=== PATIENT | male | born 1985 | race Hispanic/Latino ===

== ENCOUNTER 2020-07-21 05:35 | Emergency (ER) | payer BC ==
[2020-07-21 06:24] LABS: Basophils % (Auto) 0.1 % (0.0-1.8); Eosinophils # (Auto) 0.1 K/mm3 (0.0-0.4); Eosinophils % (Auto) 0.3 % (0.0-4.3); Hematocrit 45.1 % (35.5-45.6); Hemoglobin 15.2 gm/dl (11.8-15.2); Lymphocytes # (Auto) 2.6 K/mm3 (1.2-5.4); Lymphocytes % (Auto) 13.4 % (13.4-35.0); Mean Corpuscular HGB Conc 34 % (32-34); Mean Corpuscular Volume 90 fl (84-94); Platelet Count 254 K/mm3 (140-440); Red Blood Count 5.03 M/mm3 (3.65-5.03); Red Cell Distribution Width 13.5 % (13.2-15.2)
[2020-07-21 06:42] LABS: Alanine Aminotransferase 18 units/L (7-56); Albumin 4.9 g/dL (3.9-5); BUN/Creatinine Ratio 14; Blood Urea Nitrogen 15 mg/dL (9-20); Calcium 9.6 mg/dL (8.4-10.2); Hemolysis Index 5
[2020-07-21] MEDS ORDERED: ONDANSETRON 4 MG/2 ML INJ IV ONE (07:20)
[2020-07-21] MEDS ORDERED: SODIUM CHLORIDE 0.9% 500 ML 500 ML IV ONE (07:20)
[2020-07-21] MEDS ORDERED: MORPHINE 4 MG/1 ML INJ IV ONE (07:20)
--- NOTE | 2020-07-21 07:33 | Emergency Department Report ---
ED Abdominal Pain HPI - General Chief Complaint: Abdominal Pain Stated Complaint: RT SIDE FLANK/EMESIS Time Seen by Provider: 07/21/20 07:10 Source: patient Mode of arrival: Ambulatory Limitations: No Limitations - History of Present Illness Initial Comments: Patient is a 35-year-old male presents emergency room with complaints of right lower quadrant abdominal pain that began this morning. He states that it feels like intermittent sharp stabbing pain that lasts for approximately 10 to 15 minutes. He has associated nausea and vomiting. He denies any diarrhea, fever, dysuria, hematochezia, hematemesis, melena. He denies any abdominal surgical h istory. He denies any sick contacts or recent travel. No past medical history. No allergies medications. - Related Data Previous Rx's Medication Instructions Recorded Last Taken Type Ondansetron [Zofran Odt] 4 mg PO Q8HR PRN #8 tab.rapdis 07/21/20 Unknown Rx Tamsulosin [Flomax] 0.4 mg PO QDAY #5 cap 07/21/20 Unknown Rx traMADoL [Ultram 50 MG tab] 50 mg PO Q6HR PRN #10 tablet 07/21/20 Unknown Rx Allergies Allergy/AdvReac Type Severity Reaction Status Date / Time No Known Allergies Allergy Unverified 07/21/20 05:45 ED Review of Systems ROS: Stated complaint: RT SIDE FLANK/EMESIS Other details as noted in HPI Comment: All other systems reviewed and negative ED Past Medical Hx - Past Medical History Previous Medical History?: No - Surgical History Past Surgical History?: No - Social History Smoking Status: Never Smoker Substance Use Type: None - Medications Home Medications: Home Medications Medication Instructions Recorded Confirmed Last Taken Type Ondansetron [Zofran Odt] 4 mg PO Q8HR PRN #8 tab.rapdis 07/21/20 Unknown Rx Tamsulosin [Flomax] 0.4 mg PO QDAY #5 cap 07/21/20 Unknown Rx traMADoL [Ultram 50 MG tab] 50 mg PO Q6HR PRN #10 tablet 07/21/20 Unknown Rx ED Physical Exam - General Limitations: No Limitations General appearance: alert, in no apparent distress - Head Head exam: Present: atraumatic, normocephalic - Eye Eye exam: Present: normal appearance - ENT ENT exam: Present: mucous membranes moist - Respiratory Respiratory exam: Present: normal lung sounds bilaterally. Absent: respiratory distress, wheezes, rales, rhonchi, stridor, chest wall tenderness, accessory muscle use, decreased breath sounds, prolonged expiratory - Cardiovascular Cardiovascular Exam: Present: regular rate, normal rhythm, normal heart sounds. Absent: systolic murmur, diastolic murmur, rubs, gallop - GI/Abdominal GI/Abdominal exam: Present: soft, tenderness (RLQ), normal bowel sounds. Absent: distended, guarding, rebound, rigid - Neurological Exam Neurological exam: Present: alert, oriented X3 - Psychiatric Psychiatric exam: Present: normal affect, normal mood - Skin Skin exam: Present: warm, dry, intact ED Course Vital Signs 07/21/20 07/21/20 05:38 09:51 Temperature 97.4 F L Pulse Rate 68 71 Respiratory 17 16 Rate Blood Pressure 174/111 Blood Pressure 122/76 [Right] O2 Sat by Pulse 97 98 Oximetry ED Medical Decision Making - Lab Data Result diagrams: 07/21/20 05:48 07/21/20 05:48 Lab Results 07/21/20 07/21/20 07/21/20 Range/Units 05:48 05:48 09:04 WBC 19.6 H (4.5-11.0) K/mm3 RBC 5.03 (3.65-5.03) M/mm3 Hgb 15.2 (11.8-15.2) gm/dl Hct 45.1 (35.5-45.6) % MCV 90 (84-94) fl MCH 30 (28-32) pg MCHC 34 (32-34) % RDW 13.5 (13.2-15.2) % Plt Count 254 (140-440) K/mm3 Lymph % (Auto) 13.4 (13.4-35.0) % [place] % (Auto) 5.0 (0.0-7.3) % Eos % (Auto) 0.3 (0.0-4.3) % Baso % (Auto) 0.1 (0.0-1.8) % Lymph # (Auto) 2.6 (1.2-5.4) K/mm3 [place] # (Auto) 1.0 H (0.0-0.8) K/mm3 Eos # (Auto) 0.1 (0.0-0.4) K/mm3 Baso # (Auto) 0.0 (0.0-0.1) K/mm3 Seg Neutrophils % 81.2 H (40.0-70.0) % Seg Neutrophils # 15.9 H (1.8-7.7) K/mm3 Sodium 146 H (137-145) mmol/L Potassium 4.5 (3.6-5.0) mmol/L Chloride 106.6 (98-107) mmol/L Carbon Dioxide 23 (22-30) mmol/L Anion Gap 21 mmol/L BUN 15 (9-20) mg/dL Creatinine 1.1 (0.8-1.3) mg/dL Estimated GFR > 60 ml/min BUN/Creatinine Ratio 14 % Glucose 128 H (75-100) mg/dL Calcium 9.6 (8.4-10.2) mg/dL Total Bilirubin 0.20 (0.1-1.2) mg/dL AST 17 (5-40) units/L ALT 18 (7-56) units/L Alkaline Phosphatase 64 (35-129) units/L Total Protein 7.3 (6.3-8.2) g/dL Albumin 4.9 (3.9-5) g/dL Albumin/Globulin Ratio 2.0 % Lipase 37 (13-60) units/L Urine Color Straw (Yellow) Urine Turbidity Clear (Clear) Urine pH 7.0 (5.0-7.0) Ur Specific [place] 1.060 H (1.003-1.030) Urine Protein <15 mg/dl (Negative) mg/dL Urine Glucose (UA) Neg (Negative) mg/dL Urine Ketones Tr (Negative) mg/dL Urine Blood Lg (Negative) Urine Nitrite Neg (Negative) Urine Bilirubin Neg (Negative) Urine Urobilinogen < 2.0 (<2.0) mg/dL Ur Leukocyte Esterase Neg (Negative) Urine WBC (Auto) 1.0 (0.0-6.0) /HPF Urine RBC (Auto) 145.0 (0.0-6.0) /HPF Urine Mucus Few /HPF Vital Signs 07/21/20 07/21/20 05:38 09:51 Temperature 97.4 F L Pulse Rate 68 71 Respiratory 17 16 Rate Blood Pressure 174/111 Blood Pressure 122/76 [Right] O2 Sat by Pulse 97 98 Oximetry - Radiology Data Radiology results: report reviewed CT ABDOMEN AND PELVIS WITH CONTRAST INDICATION / CLINICAL INFORMATION: Right lower quadrant abdominal pain since this morning, nausea and vomiting, elevated white blood cell count. TECHNIQUE: Axial CT images were obtained through the abdomen and pelvis after IV contrast. Sagittal and coronal reformatted images. All CT scans at this location are performed using CT dose reduction for ALARA by means of automated exposure control. COMPARISON: None available. FINDINGS: LOWER CHEST: No significant abnormality. LIVER: No significant abnormality. GALLBLADDER: No significant abnormality. BILE DUCTS: No significant abnormality. PANCREAS: No significant abnormality. SPLEEN: No significant abnormality. ADRENALS: No significant abnormality. RIGHT KIDNEY and URETER: A 3 mm distal right ureteral stone is identified. There is mild right hydronephrosis and periureteral stranding. The right kidney is unremarkable. LEFT KIDNEY and URETER: No significant abnormality. STOMACH and SMALL BOWEL: No significant abnormality. COLON: No significant abnormality. APPENDIX: No significant abnormality. PERITONEUM: No free fluid. No free air. No fluid collection. LYMPH NODES: No significant adenopathy. AORTA and ARTERIES: No significant abnormality. IVC and VEINS: No significant abnormality. URINARY BLADDER: No significant abnormality. REPRODUCTIVE ORGANS: No significant abnormality. ADDITIONAL FINDINGS: None. SKELETAL SYSTEM: No significant abnormality. IMPRESSION: 3 mm distal right ureteral stone, mildly obstructing. No acute inflammatory process is appreciated. Normal appendix. Signer Name: Atilio Mireles Jr, MD Signed: 07/21/2020 8:06 AM Workstation Name: [id number] Transcribed By: TTR Dictated By: ATILIO MIRELES JR, MD Electronically Authenticated By: ATILIO MIRELES JR, MD Signed Date/Time: 07/21/20805 DD/ 1 TD/TT: - Medical Decision Making Patient is a 35-year-old male presents emergency room with complaints of right lower quadrant abdominal pain that began this morning. He states that it feels like intermittent sharp stabbing pain that lasts for approximately 10 to 15 minutes. He has associated nausea and vomiting. He denies any diarrhea, fever, dysuria, hematochezia, hematemesis, melena. He denies any abdominal surgical history. He denies any sick contacts or recent travel. No past medical history. No allergies medications. Initial vitals with elevated blood pressure which improved upon repeat to normal. On exam patient has right lower quadrant abdominal tenderness palpation, no guarding, no rebound, no rigidity, no peritoneal signs, normal bowel sounds. Lab significant for white blood cell count of 19.6. CT abdomen pelvis with IV contrast 3 mm distal right ureteral stone, mildly obstructing. No acute inflammatory process is appreciated. Normal appendix. UA with red blood cells, otherwise no signs of infection. Do not suspect infected nephrolithiasis as patient has no white blood cells in the urine, no fever, no tachycardia. It appears patient should likely passed stone as it already is in the distal ureter. His renal function is normal. Patient given medications and symptoms improved and he was feeling much better ready to go home. Patient was able to tolerate p.o. intake while in the emergency department. He had no further episodes of vomiting. Discussed all results with patient and answered questions. Patient given prescription for tramadol, Zofran, tamsulosin. advised pt Please take medication as prescribed. Increase your water intake. Follow-up with your primary care doctor. Follow-up with urologist. Return to emergency room immediately for any new or worsening symptoms. - Differential Diagnosis Appendicitis, colitis, nephrolithiasis, pyelonephritis, perforation, mass Critical care attestation.: If time is entered above; I have spent that time in minutes in the direct care of this critically ill patient, excluding procedure time. ED Disposition Clinical Impression: Nephrolithiasis Abdominal pain Qualifiers: Abdominal location: right lower quadrant Qualified Code(s): R10.31 - Right lower quadrant pain Nausea & vomiting Qualifiers: Vomiting type: unspecified Vomiting Intractability: non-intractable Qualified Code(s): R11.2 - Nausea with vomiting, unspecified Disposition: DC-01 TO HOME OR SELFCARE Is pt being admited?: No Does the pt Need Aspirin: No Condition: Stable Instructions: Kidney Stones (ED) Additional Instructions: Please take medication as prescribed. Increase your water intake. Follow-up with your primary care doctor. Follow-up with urologist. Return to emergency room immediately for any new or worsening symptoms. Prescriptions: Tamsulosin [Flomax] 0.4 mg PO QDAY #5 cap traMADoL [Ultram 50 MG tab] 50 mg PO Q6HR PRN #10 tablet PRN Reason: Pain , Severe (7-10) Ondansetron [Zofran Odt] 4 mg PO Q8HR PRN #8 tab.rapdis PRN Reason: Nausea And Vomiting Referrals: PRIMARY CARE, [Primary Care Provider] - 2-3 Days KENNY AZEVEDO MD [Staff Physician] - 2-3 Days Time of Disposition: 09:19 Print Language: [place]ET[place]ESE
--- NOTE | 2020-07-21 08:11 | Cat Scan Report ---
CT ABDOMEN AND PELVIS WITH CONTRAST INDICATION / CLINICAL INFORMATION: Right lower quadrant abdominal pain since this morning, nausea and vomiting, elevated white blood cell count. TECHNIQUE: Axial CT images were obtained through the abdomen and pelvis after IV contrast. Sagittal and coronal reformatted images. All CT scans at this location are performed using CT dose reduction for ALARA by means of automated exposure control. COMPARISON: None available. FINDINGS: LOWER CHEST: No significant abnormality. LIVER: No significant abnormality. GALLBLADDER: No significant abnormality. BILE DUCTS: No significant abnormality. PANCREAS: No significant abnormality. SPLEEN: No significant abnormality. ADRENALS: No significant abnormality. RIGHT KIDNEY and URETER: A 3 mm distal right ureteral stone is identified. There is mild right hydron ephrosis and periureteral stranding. The right kidney is unremarkable. LEFT KIDNEY and URETER: No significant abnormality. STOMACH and SMALL BOWEL: No significant abnormality. COLON: No significant abnormality. APPENDIX: No significant abnormality. PERITONEUM: No free fluid. No free air. No fluid collection. LYMPH NODES: No significant adenopathy. AORTA and ARTERIES: No significant abnormality. IVC and VEINS: No significant abnormality. URINARY BLADDER: No significant abnormality. REPRODUCTIVE ORGANS: No significant abnormality. ADDITIONAL FINDINGS: None. SKELETAL SYSTEM: No significant abnormality. IMPRESSION: 3 mm distal right ureteral stone, mildly obstructing. No acute inflammatory process is appreciated. Normal appendix. Signer Name: Atilio Zepeda Jr, MD Signed: 07/21/2020 8:06 AM Workstation Name: [id number]
[2020-07-21 09:15] LABS: Bilirubin,Urine NEG (Negative); Blood,Urine LG (Negative); Color,Urine Straw (Yellow); Mucus,Urine FEW /HPF; Protein,Urine <15 mg/dL mg/dL (Negative); Urobilinogen,Urine < 2.0 mg/dL (<2.0)
[2020-07-21 09:53] VITALS: BP 122/76
== END 2020-07-21 09:52 | disposition home or self-care (01) ==
LOC: ED 05:35
DX: N20.0 Calculus of kidney (principal); R10.31 Right lower quadrant pain; R11.2 Nausea with vomiting, unspecified; Z79.899 Other long term (current) drug therapy
CPT/HCPCS: 36415; 74177; 80053; 81001; 83690; 85025; 96361; 96374; 96375; 99284; J2270; J2405; J7040; Q9967